=== PATIENT | female | born 1955 | race African-American/Black ===

== ENCOUNTER → 2019-09-18 | Emergency (ER) | payer OTHER ==
[~2019-09-18] VITALS: Ht 165.1 cm; Wt 74.8 kg
[~2019-09-18] MED LIST: JANUMET 50-1,01 EACH; LIPITOR40 MG; TOPROL XL50 M1
== END | disposition home or self-care (01) ==
LOC: ER 17:57
DX: S91.321A Laceration with foreign body, right foot, initial encounter (principal); W26.8XXA Contact with other sharp object(s), not elsewhere classified, initial encounter; Y93.89 Activity, other specified; Y92.89 Other specified places as the place of occurrence of the external cause; Y99.8 Other external cause status

== ENCOUNTER 2019-10-02 08:34 | Emergency (ER) | payer OTHER ==
[~2019-10-02] VITALS: Ht 165.1 cm; Wt 74.8 kg
== END 2019-10-02 10:05 | disposition home or self-care (01) ==
LOC: ER 08:34
DX: Z48.02 Encounter for removal of sutures (principal)

== ENCOUNTER 2021-11-05 08:22 | Emergency (ER) | payer OTHER ==
[~2021-11-05] VITALS: Ht 157.5 cm; Wt 68.9 kg
[2021-11-05] MEDS ORDERED: COZAAR25 MG PO (08:48)
== END 2021-11-05 10:01 | disposition home or self-care (01) ==
LOC: ER 08:22
DX: K05.10 Chronic gingivitis, plaque induced (principal); K12.2 Cellulitis and abscess of mouth; K08.89 Other specified disorders of teeth and supporting structures